=== PATIENT | male | born 1955 | race Caucasian/White ===

== ENCOUNTER 2017-02-16 06:28 | Day surgery (SDC) | payer BC ==
--- NOTE | 2017-02-09 20:55 | HP ---
HISTORY AND PHYSICAL EXAM: DATE OF ADMISSION: 02/16/17 [facility] CHIEF COMPLAINT: Blurring of vision, left eye. HISTORY OF PRESENT ILLNESS: This 61-year-old white male is scheduled with Dr. Lauri Walker for a left cataract extraction under local anesthesia with monitored anesthesia care at the [facility] on 02/16/17. PAST MEDICAL HISTORY: The patient is under the care of Dr. Lon Wallis. He has a history of hypertension, mild diabetes, and hyperlipidemia. He had a right cataract extraction done in 2008 with good result. CURRENT MEDICATIONS: 1. Simvastatin 40 mg daily. 2. Losartan 50 mg daily. 3. Metformin ER 500 mg 2 tablets b.i.d. 4. Aspirin 325 mg daily. ALLERGIES: No known drug allergies. FAMILY HISTORY: Mother had diabetes early onset, had an MS at age 73, of complications. Father was a heavy smoker, stressful lifestyle, at age 40 of MS. Brother had coronary angioplasty stenting at age 49. SOCIAL HISTORY: The patient lives in the [facility] with his . He walks a couple of miles each day for exercise. He has never used tobacco and does not use any alcohol. REVIEW OF SYSTEMS: He does have numbness and tingling of the soles of both of his feet and has had that for years, unchanged. Otherwise, review of systems is negative to detailed questioning. Specifically, he denies any dyspnea, cough , chest pain, palpitations, or edema symptoms. PHYSICAL EXAMINATION GENERAL: A 61-year-old white male who is alert, pleasant, and cooperative, in no acute distress at the present time. VITAL SIGNS: Height 6 feet 4 inches, weight stable at 246. Blood pressure 112/ 60, pulse 76. HEENT: Ears normal. Mouth: Tongue in the midline. Teeth in good repair. Pharynx is clear. NECK: Supple. Good range of motion. No adenopathy. Thyroid benign. BACK: Normal curvature. No tenderness noted of the spine or CVA areas. LUNGS: Clear both anterior and posterior. HEART: Rhythm is regular. Apical pulse 76 beats per minute. No murmurs. ABDOMEN: Positive bowel sounds. Soft, nontender. No obvious masses or organomegaly. EXTREMITIES: Moves all 4 extremities well. No obvious limitations. No deformities. No cyanosis. No edema. No cellulitis. SKIN: Warm, dry, intact throughout. No worrisome lesions noted. DIAGNOSTIC STUDIES: EKG shows normal sinus rhythm within normal limits. No ST -T abnormalities. IMPRESSION: The patient is medically stable and cleared for his left cataract surgery with Dr. Lauri Walker at [facility]. MARCEL ARELLANO NP CC: Lauri Walker MD; Lon Wallis MD; [facility] * [id number]/[facility] #: [id number] [facility]
[~2017-02-16 06:28] MED LIST: Acetaminophen TAB* 325 MG PO PRN; Buffered Lidocaine 1% SYRIN* 5 ML/SYR SYRINGE INTRADERM ONE
[2017-02-16] MEDS ORDERED: Neomycin/Polymy/Dex OPTH.SUSP* MAXITROL 0.1% 5 ML ONE (07:54)
[2017-02-16] MEDS ORDERED: Proparacaine 0.5% OPHTH.SOL* 15 ML BTL ONE (07:54)
[2017-02-16] MEDS ORDERED: Lidocaine 1% MPF* 2 ML VIAL ONE (07:54)
[2017-02-16] MEDS ORDERED: Flurbiprofen 0.03% OPTH.SOL* 2.5 ML BTL ONE (07:54)
[2017-02-16] MEDS ORDERED: acetaZOLAMIDE TAB* 250 MG ONE (07:54)
[2017-02-16] MEDS ORDERED: Phenylephrine 2.5% OPTH.SOL* 2 ML BTL ONE (07:54)
[2017-02-16] MEDS ORDERED: Lidocaine 2% EPI 1:200000 MPF* 20 ML VIAL ONE (07:54)
[2017-02-16] MEDS ORDERED: Cyclopentolate 1% OPTH.SOL* 2 ML BTL ONE (07:54)
[2017-02-16] MEDS ORDERED: Povidone Iodine 5% OPTH* 30 ML BTL ONE (07:54)
[2017-02-16] MEDS ORDERED: Midazolam* 1 MG/ML 2 ML VIAL (2 MG) ONE (08:00)
[2017-02-16 08:26] VITALS: BP 124/78
--- NOTE | 2017-02-16 15:33 | OP ---
OPERATIVE NOTE: DATE OF OPERATION: 02/16/17 - [facility] DATE OF : 51 SURGEON: Lauri Walker MD PREOPERATIVE DIAGNOSIS: Cataract, left eye. POSTOPERATIVE DIAGNOSIS: Cataract, left eye. OPERATIVE PROCEDURE: Phacoemulsification, left eye. PROCEDURE: The patient was brought to the operating room after being given 1/2 % Alcaine with epinephrine drops in the preoperative area. The eye was prepped and draped in the usual sterile fashion. Sterile drape and eyelid speculum were placed. Again, topical 1/2% Alcaine with epinephrine was given. A paracentesis incision was made at the 3 o'clock position with the No.75 blade. Clear cornea incision 2.2 x 2.2-mm was created at the 6 o'clock position starting at the anterior limbus using the 2.2-mm keratome. The anterior chamber was irrigated with 0.4 mL of 1% non-preservative intracameral lidocaine and filled with DisCoVisc. A capsulorrhexis was completed using the cystotome and the Utrata forceps. Hydrodissection was performed with balanced salt solution. The lens nucleus was removed with the Phacoemulsification handpiece without incident. Cortex was removed with the irrigation-aspiration handpiece. The capsular bag was re-inflated using DisCoVisc and an SN60WF 16.5 Implant was inserted with the shooter. The irrigation-aspiration handpiece was used to remove all residual DisCoVisc. The eye was refilled with balanced salt solution and the wound checked and found to be watertight. Topical Maxitrol drops were given. [id number]/[facility] #: [id number] [facility]
== END 2017-02-16 08:35 | disposition home or self-care (01) ==
LOC: OREAST 06:28
PROVIDERS: ATTEND Specialist
DX: H25.12 Age-related nuclear cataract, left eye (principal); E11.9 Type 2 diabetes mellitus without complications; Z79.84 Long term (current) use of oral hypoglycemic drugs; I10 Essential (primary) hypertension
CPT/HCPCS: A9270-GY; J2250; V2632